=== PATIENT | male | born 1965 | race African-American/Black ===

== ENCOUNTER 2017-08-13 19:48 | Emergency (ER) | payer OTHER ==
--- NOTE | 2017-08-13 20:32 | ER Document Report ---
HPI - HPI Pain Level: 4 Context: Patient is a 52-year-old male complaining of swelling to his right knee. Patient felt a pop in his knee yesterday and noted the increased swelling today. Patient has no instability to the knee. No fever, redness, warmth or other signs of infection Associated Symptoms: None Exacerbated by: Movement - Flexion Relieved by: Denies Similar symptoms previously: No - ROS Systems Reviewed and Negative: Yes All other systems reviewed and negative - MUSCULOSKELETAL Musculoskeletal: REPORTS: Extremity pain Past Medical History - General Information source: Patient - Social History Smoking Status: Former Smoker Chew tobacco use (# tins/day): No Frequency of alcohol use: Occasional Drug Abuse: None Family History: Reviewed & Not Pertinent Patient has suicidal ideation: No Patient has homicidal ideation: No Renal/ Medical History: Denies: Hx Peritoneal Dialysis Traumatic Medical History: Reports: Hx Traumatic Brain Injury Vertical Provider Document - CONSTITUTIONAL Agree With Documented VS: Yes - INFECTION CONTROL TRAVEL OUTSIDE OF THE [place] IN LAST 30 DAYS: No - HEENT HEENT: Atraumatic, PERRLA - NECK Neck: Supple - RESPIRATORY Respiratory: No Respiratory Distress - MUSCULOSKELETAL/EXTREMETIES Musculoskeletal/Extremeties: Tender, Edema - Right knee with positive patellar effusion. No warmt or erythema. - NEURO Level of Consciousness: Awake, Alert, Appropriate Course - Re-evaluation Re-evalutation: 08/13/17 20:29 X-ray showing positive effusion. Patient is afebrile. The knee is not red or hot or showing other signs of septic joint. Rudi wrap applied to the knee for comfort and compression. Patient referred to Ortho for further evaluation and treatment tomorrow Procedures - Immobilization Right knee Immobilizer type: Rudi wrap Performed by: PCT Post-Proc Neuro Vasc Exam: Normal Alignment checked and good: Yes Discharge - Discharge Clinical Impression: Effusion, right knee Condition: Stable Disposition: HOME, SELF-CARE Instructions: Knee Effusion ([facility]), Rudi Wrap ([facility]), Ice & Elevation ([facility]) Additional Instructions: You have fluid under her kneecap. This may reabsorb on its own with the compression of the Rudi wrap but it may continue to increase. Please follow-up with the orthopedist listed below tomorrow for further evaluation and treatment of this effusion Follow up with Nicole (Sher) Address: [address] [place] [address], [place] [address] Referrals: PAU BERNSTEIN MD [ACTIVE STAFF] - Follow up as needed
--- NOTE | 2017-08-13 20:46 | RADIOLOGY REPORT (SQ) ---
EXAM DESCRIPTION: KNEE RIGHT 4 VIEWS COMPLETED DATE/TIME: 08/13/2017 8:20 pm REASON FOR STUDY: right knee swelling COMPARISON: None. NUMBER OF VIEWS: Four views. TECHNIQUE: AP, lateral, and both oblique radiographic images acquired of the right knee. LIMITATIONS: None. FINDINGS: MINERALIZATION: Normal. BONES: No acute fracture or dislocation. No worrisome bone lesions. JOINT: No effusion. SOFT TISSUES: No soft tissue swelling. No radio-opaque foreign body. OTHER: No other significant finding. IMPRESSION: NEGATIVE STUDY OF THE RIGHT KNEE. NO RADIOGRAPHIC EVIDENCE OF ACUTE INJURY. TECHNICAL DOCUMENTATION: JOB ID: [id number] [employer]- All Rights Reserved Reading location - IP/workstation name: [email or web address]
== END 2017-08-13 20:46 | disposition home or self-care (01) ==
LOC: ER 19:48
DX: M25.461 Effusion, right knee (principal); Z87.891 Personal history of nicotine dependence
CPT/HCPCS: 99283

== ENCOUNTER 2018-02-07 19:07 | Emergency (ER) | payer OTHER ==
[2018-02-07] MEDS ORDERED: LIDOCAINE 5% (700 MG) TRANSDERMAL ADH..PATCH TP ONE (19:37)
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
[2018-02-07] MEDS ORDERED: KETOROLAC TROMETHAMINE 60 MG/2 ML SDV IM ONE (20:36)
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
[2018-02-07] MEDS ORDERED: TRAMADOL HCL 50 MG TABLET PO ONE (21:01)
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
[2018-02-07 22:15] VITALS: BP 161/94
== END 2018-02-07 22:00 | disposition home or self-care (01) ==
LOC: ER 19:07
DX: S16.1XXA Strain of muscle, fascia and tendon at neck level, initial encounter (principal); M54.5 Low back pain; M54.9 Dorsalgia, unspecified; M54.2 Cervicalgia; V87.7XXA Person injured in collision between other specified motor vehicles (traffic), initial encounter
CPT/HCPCS: 99284; 96372; 72110; 70450; 72125; L0120; J1885